=== PATIENT | male | born 1985 | race African-American/Black ===

== ENCOUNTER 2021-12-01 19:39 | Emergency (ER) | payer SELFPAY ==
[~2021-12-01] VITALS: Ht 193 cm; Wt 2.7 kg
--- NOTE | 2021-12-01 20:12 | NUR ---
pt in room 3 pt a/o ambulatory states he has a bug bite to his left lower leg.
[2021-12-01] MEDS ORDERED: HYDR-500 PO (21:31)
[2021-12-01] MEDS ORDERED: TRIA15CR2 TP (21:31)
[2021-12-01 21:39] VITALS: BP 130/80
--- NOTE | 2021-12-01 21:39 | NUR ---
Patient discharged to home in stable condition. Written and verbal after care instructions given. Patient verbalizes understanding of instructions. Stressed follow up or return to ER for worsening s/s.
== END 2021-12-01 21:40 | disposition home or self-care (01) ==
LOC: ER 20:26
DX: S80.862A Insect bite (nonvenomous), left lower leg, initial encounter (principal); W57.XXXA Bitten or stung by nonvenomous insect and other nonvenomous arthropods, initial encounter; Y92.017 Garden or yard in single-family (private) house as the place of occurrence of the external cause
CPT/HCPCS: A4663